=== PATIENT | male | born 1970 | race Caucasian/White ===

== ENCOUNTER 2018-10-18 18:41 | Emergency (ER) | payer BC ==
[~2018-10-18] VITALS: Ht 177.8 cm; Wt 90.7 kg
[~2018-10-18 18:41] MED LIST changes: -Flomax0.4 MG PO; -Synthroid200 MCG PO
[2018-10-18] MEDS ORDERED: Synthroid200 MCG PO (19:18)
[2018-10-18 20:02] LABS: Source, Urine Clean Catch
[2018-10-18 20:05] LABS: Bilirubin, Urine Neg (Neg); Blood, Urine 3+ (Neg); Glucose Qualitative, Urine Neg (Neg); Ketones, Urine 2+ (Neg); Leukocyte Esterase, Urine Neg (Neg); Nitrite, Urine Neg (Neg); Protein, Urine Neg (Neg); Urobilinogen, Urine NORM (Normal)
[2018-10-18 20:11] LABS: Appearance, Urine Clear (Clear); Color, Urine Yellow (P-Yellow)
[2018-10-18 20:12] LABS: Bacteria Not Seen /hpf; Squamous Epithelial Cells Not Seen /hpf (Few); White Blood Cells, Urine Not Seen /hpf (0-5)
[2018-10-18] MEDS ORDERED: Flomax0.4 MG PO (20:33)
[2018-10-18 21:23] LABS: C-REACTIVE PROTEIN, EXT RANGE 0.742 mg/dL (0.000-0.300)
[2018-10-18 21:27] LABS: Prostate Specific Antigen 0.411 ng/mL (0.000-4.000)
[2018-10-18 21:58] LABS: U Amphetamine Screen Not Detected; U Barbituate Screen Not Detected; U Benzodiazapine Screen Not Detected; U Buprenorphine Screen Not Detected; U Cannabinoids Screen DETECTED; U Cocaine Screen Not Detected; U Methadone Screen Not Detected; U Methamphetamine Screen Not Detected; U Opiates Screen Not Detected; U Oxycodone Screen Not Detected; U Phencyclidine Screen Not Detected; U Propoxyphene Screen Not Detected
== END 2018-10-18 22:10 | disposition left against medical advice (07) ==
LOC: ER 18:41
PROVIDERS: Nurse Practitioner Acute Care; Physician Assistant
DX: A41.9 Sepsis, unspecified organism (principal); E03.9 Hypothyroidism, unspecified; Z87.891 Personal history of nicotine dependence; Z79.899 Other long term (current) drug therapy
CPT/HCPCS: 36415; 71046; 81001; 83605; 84145; 85651; 86140; 87086; 93005; 93010; 96360; 96361; 99284-25; G0103; J7030

== ENCOUNTER → 2018-10-18 | Outpatient (CLI) | payer BC ==
[~2018-10-18] MED LIST: Flomax0.4 MG PO; OXYACE5T PO; PROM25 PO; Synthroid200 MCG PO; TAMS.4ER PO; [UNRECOGNIZED DRUG - REMARK]
[2018-10-18 13:24] LABS: BASOPHILS ABSOLUTE AUTO 0.06 K/mm3 (0.00-0.23); BASOPHILS PERCENT AUTO 0 % (0-2); EOSINOPHILS ABSOLUTE AUTO 0.03 K/mm3 (0.00-0.68); EOSINOPHILS PERCENT AUTO 0 % (0-6); Hematocrit 39.2 % (37.0-53.0); Hemoglobin 13.3 g/dL (13.5-17.5); IMMATURE GRAN ABSOLUTE AUTO 0.18 K/mm3 (0.00-0.10); IMMATURE GRAN PERCENT AUTO 1 % (0-1); LYMPHOCYTES ABSOLUTE AUTO 2.37 K/mm3 (0.84-5.20); LYMPHOCYTES PERCENT AUTO 12 % (21-46); MONOCYTES ABSOLUTE AUTO 1.44 K/mm3 (0.16-1.47); MONOCYTES PERCENT AUTO 7 % (4-13); Mean Corpuscular HGB Conc 33.9 g/dL (31.5-36.5); Mean Corpuscular Volume 85 fL (80-100); Mean Platelet Volume 9.2 fL (9.1-12.4); NEUTROPHILS ABSOLUTE AUTO 16.18 K/mm3 (1.96-9.15); NEUTROPHILS PERCENT AUTO 80 % (41-73); Platelet Count 346 K/mm3 (150-400); RDW Coefficient Variation 13.5 % (11.7-14.2); RDW Standard Deviation 42.2 fL (35.1-46.3); Red Blood Cell Count 4.59 M/mm3 (4.30-5.90); White Blood Cell Count 20.26 K/mm3 (4.00-11.30)
[2018-10-18 14:47] LABS: Alanine Aminotransfer (ALT/SGP 22 U/L (12-78); Albumin, Blood 3.8 g/dL (3.4-5.0); Albumin/Globulin Ratio 0.9 (0.8-1.8); Alk Phos 92 U/L (50-136); Anion Gap 7 mmol/L (6-16); Aspartate Aminotrans (AST/SGOT 18 U/L (12-37); Bilirubin, Total 0.6 mg/dL (0.1-1.0); Blood Urea Nitrogen 16 mg/dL (8-24); Bun/Creatinine Ratio 16.8 (12.0-20.0); CO2, Blood 25 mmol/L (21-32); Calcium, Blood 9.2 mg/dL (8.5-10.1); Chloride, Blood 104 mmol/L (98-108); Creatinine, Blood 0.95 mg/dL (0.60-1.20); Globulin, Blood 4.3 g/dL (2.2-4.0); Glomerular Filtration Rate >60 (60-); Glucose, Blood 177 mg/dL (70-99); Potassium, Blood 3.7 mmol/L (3.5-5.5); Sodium, Blood 136 mmol/L (136-145); Total Protein, Blood 8.1 g/dL (6.4-8.2)
[2018-10-18 18:28] LABS: Thyroid Stimulating Hormone 0.309 uIU/mL (0.360-4.800)
== END | disposition home or self-care (01) ==
LOC: LAB SHORT 13:20 → LAB EV 13:20
PROVIDERS: Physician Assistant Medical
DX: R10.30 Lower abdominal pain, unspecified (principal); R53.83 Other fatigue; R68.89 Other general symptoms and signs; D72.829 Elevated white blood cell count, unspecified
CPT/HCPCS: 80053; 83605; 83690; 84443; 85025; 87040